=== PATIENT | male | born 1990 | race Two or more races ===

== ENCOUNTER 2018-01-10 03:38 | Emergency (ER) | payer MEDICAID ==
[~2018-01-10] VITALS: Ht 175.3 cm; Wt 63.5 kg
[2018-01-10 03:52] VITALS: BP 149/100
== END 2018-01-10 04:30 | disposition left against medical advice (07) ==
LOC: ER 03:57
DX: L29.8 Other pruritus (principal); Z53.21 Procedure and treatment not carried out due to patient leaving prior to being seen by health care provider

== ENCOUNTER 2018-01-10 07:31 | Emergency (ER) | payer MEDICAID ==
[~2018-01-10] VITALS: Ht 175.3 cm; Wt 63.5 kg
[2018-01-10 07:40] VITALS: BP 116/82
== END 2018-01-10 08:37 | disposition home or self-care (01) ==
LOC: ER 07:31
DX: S90.425A Blister (nonthermal), left lesser toe(s), initial encounter (principal); L23.89 Allergic contact dermatitis due to other agents; F17.210 Nicotine dependence, cigarettes, uncomplicated; Z88.0 Allergy status to penicillin; X58.XXXA Exposure to other specified factors, initial encounter; Y93.89 Activity, other specified; Y99.8 Other external cause status; Y92.89 Other specified places as the place of occurrence of the external cause

== ENCOUNTER → 2018-01-15 | Emergency (ER) | payer MEDICAID | END | disposition left against medical advice (07) | LOC: ER 02:20 | DX: T78.40XA Allergy, unspecified, initial encounter (principal); Z53.21 Procedure and treatment not carried out due to patient leaving prior to being seen by health care provider ==

== ENCOUNTER 2018-01-24 05:22 | Emergency (ER) | payer MEDICAID ==
[~2018-01-24] VITALS: Ht 175.3 cm; Wt 63.5 kg
[2018-01-24 05:30] VITALS: BP 134/92
== END 2018-01-24 08:05 | disposition home or self-care (01) ==
LOC: ER 05:24
DX: L85.3 Xerosis cutis (principal); L98.8 Other specified disorders of the skin and subcutaneous tissue; F17.210 Nicotine dependence, cigarettes, uncomplicated; Z88.0 Allergy status to penicillin

== ENCOUNTER → 2018-01-26 | Emergency (ER) | payer MEDICAID | END | disposition left against medical advice (07) | LOC: ER 02:29 | DX: M79.673 Pain in unspecified foot (principal); Z53.21 Procedure and treatment not carried out due to patient leaving prior to being seen by health care provider ==

== ENCOUNTER 2018-01-29 05:03 | Emergency (ER) | payer MEDICAID ==
[~2018-01-29] VITALS: Ht 175.3 cm; Wt 68.0 kg
[2018-01-29 05:20] VITALS: BP 122/77
== END 2018-01-29 07:25 | disposition home or self-care (01) ==
LOC: ER 05:07
DX: L98.8 Other specified disorders of the skin and subcutaneous tissue (principal); F17.210 Nicotine dependence, cigarettes, uncomplicated; Z76.0 Encounter for issue of repeat prescription; Z88.0 Allergy status to penicillin

== ENCOUNTER 2018-02-14 04:18 | Emergency (ER) | payer MEDICAID | END 2018-02-14 04:45 | disposition left against medical advice (07) | LOC: ER 04:20 | DX: M79.89 Other specified soft tissue disorders (principal); Z48.01 Encounter for change or removal of surgical wound dressing; Z53.21 Procedure and treatment not carried out due to patient leaving prior to being seen by health care provider ==

== ENCOUNTER 2018-04-17 11:06 | Emergency (ER) | payer MEDICAID ==
[~2018-04-17] VITALS: Ht 175.3 cm; Wt 63.5 kg
[2018-04-17 11:28] VITALS: BP 110/86
== END 2018-04-17 12:01 | disposition home or self-care (01) ==
LOC: ER 11:08
DX: L85.3 Xerosis cutis (principal); Z76.0 Encounter for issue of repeat prescription; Z88.0 Allergy status to penicillin

== ENCOUNTER 2019-07-12 02:31 | Emergency (ER) | payer MEDICAID ==
[~2019-07-12] VITALS: Ht 175.3 cm; Wt 63.5 kg
[2019-07-12 07:45] VITALS: BP 119/75
[2019-07-12] MEDS ORDERED: methylPREDNISolone SOD SUCC 125 MG/2 ML VL IM ONE (08:00)
[2019-07-12] MEDS ORDERED: diphenhdrAMINE HCL 50 MG/1 ML VL IM ONE (08:00)
== END 2019-07-12 08:29 | disposition home or self-care (01) ==
LOC: ER 02:31
DX: B86 Scabies (principal); L08.9 Local infection of the skin and subcutaneous tissue, unspecified
CPT/HCPCS: 96372; 99283; J1200; J2930

== ENCOUNTER 2019-08-21 02:39 | Emergency (ER) | payer MEDICAID ==
[~2019-08-21] VITALS: Ht 170.2 cm; Wt 61.2 kg
[2019-08-21 04:44] VITALS: BP 116/73
== END 2019-08-21 04:57 | disposition home or self-care (01) ==
LOC: ER 02:40
DX: L21.9 Seborrheic dermatitis, unspecified (principal); F17.210 Nicotine dependence, cigarettes, uncomplicated; Z88.0 Allergy status to penicillin

== ENCOUNTER 2019-09-16 06:26 | Emergency (ER) | payer MEDICAID ==
[~2019-09-16] VITALS: Ht 175.3 cm; Wt 59.0 kg
[2019-09-16 06:58] VITALS: BP 122/59
== END 2019-09-16 08:57 | disposition home or self-care (01) ==
LOC: ER 06:26
DX: B86 Scabies (principal); F17.210 Nicotine dependence, cigarettes, uncomplicated; Z88.0 Allergy status to penicillin

== ENCOUNTER 2020-01-13 09:20 | Emergency (ER) | payer MEDICAID ==
[~2020-01-13] VITALS: Ht 175.3 cm; Wt 63.5 kg
[2020-01-13 09:26] VITALS: BP 122/76
[2020-01-13] MEDS ORDERED: KETOROLAC TROMETH 60MG/2ML VIAL IM ONE (10:30)
== END 2020-01-13 10:57 | disposition home or self-care (01) ==
LOC: ER 09:20
DX: M79.671 Pain in right foot (principal); M79.672 Pain in left foot; F17.210 Nicotine dependence, cigarettes, uncomplicated; F41.9 Anxiety disorder, unspecified
CPT/HCPCS: 96372; 99283; J1885

== ENCOUNTER 2020-11-17 23:55 | Emergency (ER) | payer MEDICAID ==
[~2020-11-17] VITALS: Ht 175.3 cm; Wt 65.8 kg
[2020-11-18] MEDS ORDERED: ONDANSETRON HCL 4 MG/2 ML VIAL IV ONE (07:15)
[2020-11-18] MEDS ORDERED: SODIUM CHLORIDE 0.9% 1,000 ML IV ONE ×2 (07:15)
[2020-11-18 08:30] VITALS: BP 117/83
== END 2020-11-18 08:33 | disposition home or self-care (01) ==
LOC: ER 23:55
DX: T67.5XXA Heat exhaustion, unspecified, initial encounter (principal); E86.0 Dehydration; F17.210 Nicotine dependence, cigarettes, uncomplicated; Z88.0 Allergy status to penicillin; X58.XXXA Exposure to other specified factors, initial encounter; Y93.89 Activity, other specified; Y92.89 Other specified places as the place of occurrence of the external cause; Y99.8 Other external cause status
CPT/HCPCS: 99281; J2405

== ENCOUNTER 2021-01-04 19:45 | Emergency (ER) | payer SELFPAY ==
[~2021-01-04] VITALS: Ht 175.3 cm; Wt 65.8 kg
[2021-01-04 20:11] VITALS: BP 116/73
== END 2021-01-05 01:34 | disposition home or self-care (01) ==
LOC: ER 19:55
DX: M79.672 Pain in left foot (principal); M79.671 Pain in right foot; F15.10 Other stimulant abuse, uncomplicated; F17.210 Nicotine dependence, cigarettes, uncomplicated; Z88.0 Allergy status to penicillin

== ENCOUNTER 2021-01-30 10:34 | Emergency (ER) | payer SELFPAY ==
[~2021-01-30] VITALS: Ht 180.3 cm; Wt 65.8 kg
[2021-01-30 11:20] VITALS: BP 105/64
[2021-01-30] MEDS ORDERED: cefTRIAXone SOD 1,000 MG VL IM ONE (15:30)
[2021-01-30] MEDS ORDERED: SILVER SULFADIAZINE 1 % TOPICAL CREAM 50GM TOP ONE (15:30)
== END 2021-01-30 16:21 | disposition home or self-care (01) ==
LOC: ER 10:36
DX: T24.221A Burn of second degree of right knee, initial encounter (principal); F17.210 Nicotine dependence, cigarettes, uncomplicated; Z88.0 Allergy status to penicillin; X08.8XXA Exposure to other specified smoke, fire and flames, initial encounter; Y93.89 Activity, other specified; Y92.89 Other specified places as the place of occurrence of the external cause; Y99.8 Other external cause status
CPT/HCPCS: 16020; 96372; 99283; J0696

== ENCOUNTER 2021-07-20 01:29 | Emergency (ER) | payer MEDICAID ==
[~2021-07-20] VITALS: Ht 175.3 cm; Wt 65.8 kg
[2021-07-20 09:30] VITALS: BP 135/80
== END 2021-07-20 09:48 | disposition home or self-care (01) ==
LOC: ER 01:29
DX: S32.019A Unspecified fracture of first lumbar vertebra, initial encounter for closed fracture (principal); S33.5XXA Sprain of ligaments of lumbar spine, initial encounter; F17.210 Nicotine dependence, cigarettes, uncomplicated; M79.18 Myalgia, other site; F15.10 Other stimulant abuse, uncomplicated; Z88.0 Allergy status to penicillin; V43.92XA Unspecified car occupant injured in collision with other type car in traffic accident, initial encounter; Y93.89 Activity, other specified; Y92.89 Other specified places as the place of occurrence of the external cause; Y99.8 Other external cause status
CPT/HCPCS: 72125; 72131

== ENCOUNTER 2021-08-02 01:26 | Emergency (ER) | payer MEDICAID ==
[~2021-08-02] VITALS: Ht 180.3 cm; Wt 63.5 kg
[2021-08-02 02:11] LABS: Basophils # (auto) 0 10 ^3/uL (0-0.2); Basophils % (auto) 0.5 % (0.0-2.0); Eosinophils # (auto) 0.1 10 ^3/uL (0-0.8); Eosinophils % (auto) 1.7 % (0.0-7.0); Hematocrit 43.9 % (41.0-53.0); Hemoglobin 14.9 g/dL (13.5-17.5); Lymphocytes # (auto) 1.5 10 ^3/uL (0.4-5.4); Lymphocytes % (auto) 26.3 % (10.0-50.0); Mean Corpuscular Hemoglobin 28.4 pg (28.0-32.0); Mean Corpuscular Hgb Conc. 33.9 g/dL (32.0-36.0); Mean Corpuscular Volume 83.8 fL (80.0-100.0); Monocytes # (auto) 0.5 10 ^3/uL (0-1.3); Monocytes % (auto) 8.2 % (0.0-12.0); Neutrophils # (auto) 3.5 10 ^3/uL (1.6-8.6); Neutrophils % (auto) 63.3 % (37.0-80.0); Nucleated Red Blood Cells % 0.1 %; Red Blood Cells 5.24 10^6/uL (4.5-5.90); Red Cell Distribution Width 14.5 % (11.8-14.3); White Blood Cell 5.5 10^3/uL (4.4-10.8)
[2021-08-02 02:27] LABS: BUN/Creatinine Ratio 19.7; Calcium 9.8 mg/dL (8.5-10.1); Potassium 4.1 mmol/L (3.5-5.1)
[2021-08-02 04:39] LABS: Alcohol, Urine < 3.0 mg/dL (0-10); Amphetamine Screen, Urine POSITIVE (NEGATIVE); Barbiturate Scree,Urine NEGATIVE (NEGATIVE); Benzodiazephine Screen, Urine NEGATIVE (NEGATIVE); Cannabinoid Screen, Urine POSITIVE (NEGATIVE); Cocaine Screen, Urine NEGATIVE (NEGATIVE); Opiate Scree,Urine NEGATIVE (NEGATIVE); Phencyclidine Screen, Urine NEGATIVE (NEGATIVE)
[2021-08-03 04:00] VITALS: BP 115/62
== END 2021-08-03 04:09 ==
LOC: ER 01:29
DX: T24.001A Burn of unspecified degree of unspecified site of right lower limb, except ankle and foot, initial encounter (principal); R41.82 Altered mental status, unspecified; F12.10 Cannabis abuse, uncomplicated; F15.10 Other stimulant abuse, uncomplicated; F17.210 Nicotine dependence, cigarettes, uncomplicated; F19.951 Other psychoactive substance use, unspecified with psychoactive substance-induced psychotic disorder with hallucinations; X08.8XXA Exposure to other specified smoke, fire and flames, initial encounter; Y93.9 Activity, unspecified; Y92.9 Unspecified place or not applicable; Y99.9 Unspecified external cause status
CPT/HCPCS: 36415; 71046; 80048; 80307; 80320; 85025

== ENCOUNTER 2021-10-18 13:43 | Emergency (ER) | payer MEDICAID ==
[~2021-10-18] VITALS: Ht 175.3 cm; Wt 68.0 kg
[2021-10-18 13:45] VITALS: BP 123/71
[2021-10-19] MEDS ORDERED: IBUP800T27 PO (07:11)
== END 2021-10-19 06:46 | disposition left against medical advice (07) ==
LOC: ER 13:43
DX: R44.3 Hallucinations, unspecified (principal); F19.951 Other psychoactive substance use, unspecified with psychoactive substance-induced psychotic disorder with hallucinations; F17.210 Nicotine dependence, cigarettes, uncomplicated; F15.10 Other stimulant abuse, uncomplicated; Z53.29 Procedure and treatment not carried out because of patient's decision for other reasons

== ENCOUNTER 2021-10-19 06:12 | Emergency (ER) | payer MEDICAID ==
[~2021-10-19] VITALS: Ht 175.3 cm; Wt 68.0 kg
[2021-10-19 06:13] VITALS: BP 121/78
[2021-10-19] MEDS ORDERED: IBUP800T27 PO (07:11)
[2021-10-19] MEDS ORDERED: HYDROcodone-ACET 5/325MG TAB PO ONE (07:15)
== END 2021-10-19 07:33 | disposition home or self-care (01) ==
LOC: ER 06:12
DX: M54.50 Low back pain, unspecified (principal); G89.29 Other chronic pain; F17.210 Nicotine dependence, cigarettes, uncomplicated; F15.10 Other stimulant abuse, uncomplicated; Z88.0 Allergy status to penicillin

== ENCOUNTER 2021-10-19 16:35 | Emergency (ER) | payer MEDICAID ==
[~2021-10-19] VITALS: Ht 175.3 cm; Wt 68.0 kg
[~2021-10-19 16:35] MED LIST: IBUP800T27 PO
[2021-10-19 16:36] VITALS: BP 147/70
[2021-10-19] MEDS ORDERED: HYDROcodone-ACET 5/325MG TAB PO ONE (17:45)
== END 2021-10-19 18:00 | disposition home or self-care (01) ==
LOC: ER 16:35
DX: G89.29 Other chronic pain (principal); M54.50 Low back pain, unspecified; M62.830 Muscle spasm of back; Z88.0 Allergy status to penicillin

== ENCOUNTER 2021-10-20 23:39 | Emergency (ER) | payer MEDICAID ==
[~2021-10-20] VITALS: Ht 175.3 cm; Wt 68.0 kg
[2021-10-21] MEDS ORDERED: KETOROLAC TROMETH 60MG/2ML VIAL IM ONE (03:15)
[2021-10-21 03:23] VITALS: BP 132/87
== END 2021-10-21 03:26 | disposition home or self-care (01) ==
LOC: ER 23:47
DX: M54.9 Dorsalgia, unspecified (principal); G89.4 Chronic pain syndrome; F17.210 Nicotine dependence, cigarettes, uncomplicated; F15.10 Other stimulant abuse, uncomplicated; Z88.0 Allergy status to penicillin
CPT/HCPCS: 96372; 99283; J1885

== ENCOUNTER 2021-10-23 11:12 | Emergency (ER) | payer MEDICAID ==
[~2021-10-23] VITALS: Ht 175.3 cm; Wt 68.0 kg
[2021-10-23 12:21] VITALS: BP 127/76
[2021-10-23] MEDS ORDERED: KETOROLAC TROMETH 60MG/2ML VIAL IM ONE (13:00)
== END 2021-10-23 13:31 | disposition home or self-care (01) ==
LOC: ER 11:12
DX: G89.29 Other chronic pain (principal); M54.59 Other low back pain; F15.10 Other stimulant abuse, uncomplicated; F12.10 Cannabis abuse, uncomplicated; F17.210 Nicotine dependence, cigarettes, uncomplicated; Z88.0 Allergy status to penicillin
CPT/HCPCS: 96372; 99283; J1885

== ENCOUNTER 2021-10-31 22:36 | Emergency (ER) | payer MEDICAID ==
[~2021-10-31] VITALS: Ht 175.3 cm; Wt 70.8 kg
[2021-10-31 22:49] VITALS: BP 139/94
[2021-11-01] MEDS ORDERED: KETOROLAC TROMETH 60MG/2ML VIAL IM ONE (01:45)
== END 2021-11-01 02:01 | disposition home or self-care (01) ==
LOC: ER 22:36
DX: M54.50 Low back pain, unspecified (principal); G89.29 Other chronic pain
CPT/HCPCS: 96372; 99283; J1885

== ENCOUNTER 2021-11-07 00:18 | Emergency (ER) | payer MEDICAID ==
[~2021-11-07] VITALS: Ht 175.3 cm; Wt 72.6 kg
[2021-11-07 00:19] VITALS: BP 123/84
== END 2021-11-07 06:17 | disposition left against medical advice (07) ==
LOC: ER 00:18
DX: M54.9 Dorsalgia, unspecified (principal); Z53.21 Procedure and treatment not carried out due to patient leaving prior to being seen by health care provider

== ENCOUNTER 2021-11-07 20:22 | Emergency (ER) | payer MEDICAID ==
[~2021-11-07] VITALS: Ht 175.3 cm; Wt 68.0 kg
[2021-11-07 20:23] VITALS: BP 123/91
[2021-11-08] MEDS ORDERED: KETOROLAC TROMETH 60MG/2ML VIAL IM ONE (02:00)
== END 2021-11-08 02:14 | disposition home or self-care (01) ==
LOC: ER 20:22
DX: G89.29 Other chronic pain (principal); M54.50 Low back pain, unspecified; M79.672 Pain in left foot; Z88.0 Allergy status to penicillin
CPT/HCPCS: 73630; 96372; 99283; J1885

== ENCOUNTER 2021-11-09 02:11 | Emergency (ER) | payer MEDICAID ==
[~2021-11-09] VITALS: Ht 175.3 cm; Wt 68.0 kg
[2021-11-09 02:12] VITALS: BP 130/91
== END 2021-11-09 02:37 | disposition home or self-care (01) ==
LOC: ER 02:11
DX: G89.29 Other chronic pain (principal); M54.50 Low back pain, unspecified; F17.210 Nicotine dependence, cigarettes, uncomplicated; Z79.1 Long term (current) use of non-steroidal anti-inflammatories (NSAID); Z88.0 Allergy status to penicillin

== ENCOUNTER 2021-11-10 02:13 | Emergency (ER) | payer MEDICAID ==
[~2021-11-10] VITALS: Ht 175.3 cm; Wt 68.0 kg
[2021-11-10 03:30] VITALS: BP 120/82
== END 2021-11-10 03:35 | disposition home or self-care (01) ==
LOC: ER 02:13
DX: M79.672 Pain in left foot (principal); G89.29 Other chronic pain; M54.50 Low back pain, unspecified; F17.210 Nicotine dependence, cigarettes, uncomplicated; F12.10 Cannabis abuse, uncomplicated; F15.10 Other stimulant abuse, uncomplicated

== ENCOUNTER 2021-11-12 06:20 | Emergency (ER) | payer MEDICAID ==
[~2021-11-12] VITALS: Ht 175.3 cm; Wt 68.0 kg
[2021-11-12] MEDS ORDERED: KETOROLAC TROMETH 60MG/2ML VIAL IM ONE (11:00)
[2021-11-12 11:23] VITALS: BP 144/92
== END 2021-11-12 11:55 | disposition home or self-care (01) ==
LOC: ER 06:20
DX: M79.672 Pain in left foot (principal); M25.572 Pain in left ankle and joints of left foot; G89.29 Other chronic pain
CPT/HCPCS: 96372; 99284; J1885

== ENCOUNTER 2021-11-14 04:26 | Emergency (ER) | payer MEDICAID ==
[~2021-11-14] VITALS: Ht 175.3 cm; Wt 68.0 kg
[2021-11-14 07:35] VITALS: BP 132/68
== END 2021-11-14 09:40 | disposition home or self-care (01) ==
LOC: ER 04:26
DX: S30.862A Insect bite (nonvenomous) of penis, initial encounter (principal); F15.10 Other stimulant abuse, uncomplicated; F12.10 Cannabis abuse, uncomplicated; F17.210 Nicotine dependence, cigarettes, uncomplicated; G89.29 Other chronic pain; M54.9 Dorsalgia, unspecified; M79.672 Pain in left foot; Z79.1 Long term (current) use of non-steroidal anti-inflammatories (NSAID); Z88.0 Allergy status to penicillin; W57.XXXA Bitten or stung by nonvenomous insect and other nonvenomous arthropods, initial encounter; Y93.89 Activity, other specified; Y92.89 Other specified places as the place of occurrence of the external cause; Y99.8 Other external cause status

== ENCOUNTER 2021-11-17 05:13 | Emergency (ER) | payer MEDICAID ==
[~2021-11-17] VITALS: Ht 175.3 cm; Wt 68.5 kg
[2021-11-17 06:16] VITALS: BP 138/89
== END 2021-11-17 06:23 | disposition left against medical advice (07) ==
LOC: ER 05:13
DX: M54.50 Low back pain, unspecified (principal); Z53.21 Procedure and treatment not carried out due to patient leaving prior to being seen by health care provider

== ENCOUNTER 2021-11-20 04:01 | Emergency (ER) | payer MEDICAID ==
[~2021-11-20] VITALS: Ht 175.3 cm; Wt 56.7 kg
[2021-11-20 04:13] VITALS: BP 124/86
== END 2021-11-20 05:16 | disposition left against medical advice (07) ==
LOC: ER 04:01
DX: M79.672 Pain in left foot (principal); M79.671 Pain in right foot; Z53.21 Procedure and treatment not carried out due to patient leaving prior to being seen by health care provider

== ENCOUNTER 2021-11-24 02:20 | Emergency (ER) | payer MEDICAID ==
[~2021-11-24] VITALS: Ht 175.3 cm; Wt 68.0 kg
[2021-11-24 02:20] VITALS: BP 129/82
[2021-11-24] MEDS ORDERED: IBUP800T27 PO (05:43)
== END 2021-11-24 05:50 | disposition home or self-care (01) ==
LOC: ER 02:20
DX: R51.9 Headache, unspecified (principal); F17.210 Nicotine dependence, cigarettes, uncomplicated; Z79.1 Long term (current) use of non-steroidal anti-inflammatories (NSAID); Z88.0 Allergy status to penicillin
CPT/HCPCS: 70450

== ENCOUNTER 2021-12-01 20:19 | Emergency (ER) | payer MEDICAID ==
[~2021-12-01] VITALS: Ht 175.3 cm; Wt 68.0 kg
[2021-12-01 21:44] VITALS: BP 119/77
[2021-12-01] MEDS ORDERED: KETOROLAC TROMETH 30 MG/ML 1ML VIAL IM ONE (22:30)
== END 2021-12-01 23:39 | disposition home or self-care (01) ==
LOC: ER 20:19
DX: R51.9 Headache, unspecified (principal); F17.210 Nicotine dependence, cigarettes, uncomplicated; F12.10 Cannabis abuse, uncomplicated; F15.10 Other stimulant abuse, uncomplicated; Z88.0 Allergy status to penicillin
CPT/HCPCS: 96372; 99283; J1885

== ENCOUNTER 2021-12-07 21:59 | Inpatient (IN) | payer MEDICAID ==
[~2021-12-07] VITALS: Ht 165.1 cm; Wt 62.1 kg
[2021-12-07 20:00] VITALS: BP 104/61
[2021-12-07 23:00] LABS: Basophils # (auto) 0 10 ^3/uL (0-0.2); Basophils % (auto) 0.2 % (0.0-2.0); Eosinophils # (auto) 0 10 ^3/uL (0-0.8); Eosinophils % (auto) 0.1 % (0.0-7.0); Hematocrit 41.8 % (41.0-53.0); Hemoglobin 13.8 g/dL (13.5-17.5); Lymphocytes # (auto) 0.4 10 ^3/uL (0.4-5.4); Lymphocytes % (auto) 5.4 % (10.0-50.0); Mean Corpuscular Hemoglobin 28.1 pg (28.0-32.0); Mean Corpuscular Hgb Conc. 32.9 g/dL (32.0-36.0); Mean Corpuscular Volume 85.4 fL (80.0-100.0); Monocytes # (auto) 0.2 10 ^3/uL (0-1.3); Monocytes % (auto) 3.3 % (0.0-12.0); Neutrophils # (auto) 6.6 10 ^3/uL (1.6-8.6); Red Blood Cells 4.89 10^6/uL (4.5-5.90); Red Cell Distribution Width 13.4 % (11.8-14.3); White Blood Cell 7.3 10^3/uL (4.4-10.8)
[2021-12-07 23:19] LABS: Albumin 3.8 g/dL (3.4-5.0); BUN/Creatinine Ratio 7.5; Calcium 8.5 mg/dL (8.5-10.1); Potassium 3.7 mmol/L (3.5-5.1); Salicylate < 1.7 mg/dL (2.8-20.0)
[2021-12-07 23:22] LABS: Bilirubin, Total 0.3 mg/dL (0.2-1.0); Total Protein 6.7 g/dL (6.4-8.2)
[2021-12-07 23:30] LABS: Acetaminophen < 2.0 ug/mL (10-30)
[2021-12-07 23:48] LABS: Magnesium 2.4 mg/dL (1.6-2.6)
[2021-12-08] MEDS ORDERED: LORazepam 2MG/ML-1ML VIAL IV ONE (00:45)
[2021-12-08] MEDS ORDERED: ASPirin 300 MG RECTAL SUPP PR ONE (00:45)
[2021-12-08] MEDS ORDERED: SODIUM CHLORIDE 0.9% 1,000 ML IV ONE ×2 (01:00)
[2021-12-08] MEDS ORDERED: LACTULOSE 10g/15ml SOLN 473ML PR ONE (01:15)
[2021-12-08] MEDS ORDERED: ASPirin 325 MG TAB PO ONE (01:15)
[2021-12-08] MEDS ORDERED: levoFLOXacin 750MG 150 ML IV ONE (01:15)
[2021-12-08] MEDS ORDERED: ACETAMINOPHEN 325 MG TAB PO PRN (01:45)
[2021-12-08] MEDS ORDERED: LORazepam 2MG/ML-1ML VIAL IV PRN (01:45)
[2021-12-08] MEDS ORDERED: DOCUSATE SOD 100 MG CAP PO PRN (01:45)
[2021-12-08] MEDS ORDERED: ONDANSETRON HCL 4 MG/2 ML VIAL IV PRN (01:45)
[2021-12-08] MEDS ORDERED: NITROGLYCERIN 0.4 MG SL TAB SL PRN (03:45)
[2021-12-08] MEDS ORDERED: MORPHINE SULFATE INJ 2 MG/ml SYRG IV PRN (03:45)
[2021-12-08 05:14] LABS: Basophils # (auto) 0 10 ^3/uL (0-0.2); Basophils % (auto) 0.2 % (0.0-2.0); Eosinophils # (auto) 0 10 ^3/uL (0-0.8); Eosinophils % (auto) 0.1 % (0.0-7.0); Hemoglobin 13.7 g/dL (13.5-17.5); Lymphocytes # (auto) 0.8 10 ^3/uL (0.4-5.4); Mean Corpuscular Hemoglobin 28.8 pg (28.0-32.0); Mean Corpuscular Hgb Conc. 32.7 g/dL (32.0-36.0); Mean Corpuscular Volume 88.2 fL (80.0-100.0); Monocytes # (auto) 0.7 10 ^3/uL (0-1.3); Monocytes % (auto) 9.5 % (0.0-12.0); Neutrophils # (auto) 6.2 10 ^3/uL (1.6-8.6); Neutrophils % (auto) 80.2 % (37.0-80.0); Nucleated Red Blood Cells % 0.1 %; Red Blood Cells 4.76 10^6/uL (4.5-5.90); Red Cell Distribution Width 13.6 % (11.8-14.3); White Blood Cell 7.7 10^3/uL (4.4-10.8)
[2021-12-08 05:24] LABS: Albumin 3.5 g/dL (3.4-5.0); BUN/Creatinine Ratio 12.7; Calcium 7.8 mg/dL (8.5-10.1); INR 1.27 (0.9-1.15); Partial Thromboplastin Time 27.3 sec (23.6-33.0); Potassium 4.1 mmol/L (3.5-5.1)
[2021-12-08 05:27] LABS: Bilirubin, Total 0.2 mg/dL (0.2-1.0); Total Protein 6.2 g/dL (6.4-8.2)
[2021-12-08] MEDS: HEPARIN DRIP/D5W 100UNITS/ML 250 ML IV SCH (06:00)
[2021-12-08] MEDS: SODIUM CHLOR 0.9% PF (SALINE LOCK) 10ML VIAL/SYR IV SCH ×3 (06:08→22:54)
[2021-12-08] MEDS: ACCU-CHEK COMFORT CURVE STRIP VI SCH ×4 (06:52→22:00)
[2021-12-08] MEDS: InsuLIN REG 1unit/0.01ml Soln (100units/ml) SC SCH ×4 (06:52→22:00)
[2021-12-08] MEDS: ASPirin 81 mg TAB PO SCH (10:00)
[2021-12-08] MEDS: MULTIPLE VITAMIN TAB PO SCH (10:00)
[2021-12-08] MEDS ORDERED: HEPARIN SODIUM (PORCINE) 5000 UNITS/ML 1ML VIAL SC SCH (10:00)
[2021-12-08] MEDS: LACTULOSE 20Gm/30ML SOLN PO SCH ×3 (10:04→18:00)
[2021-12-08] MEDS: THIAMINE 100mg/ml INJ (200mg/2ml VIAL) IV SCH (10:27)
[2021-12-08] MEDS: FAMOTIDINE (10MG/ML) 2ML VL IV SCH (10:27)
[2021-12-08] MEDS: FOLIC ACID 1 MG in D5W 5% 50 ML INJ SCH (10:46)
[2021-12-08] MEDS: DEXTROSE (50%) 50ML SYRG IV PRN ×2 (12:11→18:39)
[2021-12-08 13:19] LABS: INR 1.27 (0.9-1.15); Partial Thromboplastin Time 35.7 sec (23.6-33.0)
[2021-12-08 15:10] LABS: Cholesterol 118 mg/dL (< 200); HDL Cholesterol 59 mg/dL (40-59); LDL Cholesterol 60 mg/dL (< 100); Triglycerides 36 mg/dL (< 150)
[2021-12-08 17:15] VITALS: BP 96/60
[2021-12-08 20:00] VITALS: BP 104/61
[2021-12-08 22:00] VITALS: BP 104/61
[2021-12-08 22:31] LABS: INR 1.17 (0.9-1.15); Partial Thromboplastin Time 33.6 sec (24.6-33.4)
[2021-12-08] MEDS ORDERED: HEPARIN SODIUM (PORCINE) 5000 UNITS/ML 1ML VIAL IV ONE (23:15)
[2021-12-09] MEDS: LACTULOSE 20Gm/30ML SOLN PO SCH ×5 (00:19→18:25)
[2021-12-09 02:18] VITALS: BP 104/61
[2021-12-09 05:00] VITALS: BP 111/73
[2021-12-09] MEDS: ACCU-CHEK COMFORT CURVE STRIP VI SCH ×4 (06:10→22:12)
[2021-12-09] MEDS: InsuLIN REG 1unit/0.01ml Soln (100units/ml) SC SCH ×4 (06:10→22:00)
[2021-12-09] MEDS: SODIUM CHLOR 0.9% PF (SALINE LOCK) 10ML VIAL/SYR IV SCH ×3 (06:10→22:13)
[2021-12-09] MEDS: HEPARIN DRIP/D5W 100UNITS/ML 250 ML IV SCH (06:37)
[2021-12-09 07:38] LABS: Basophils # (auto) 0 10 ^3/uL (0-0.2); Basophils % (auto) 0.6 % (0.0-2.0); Eosinophils # (auto) 0 10 ^3/uL (0-0.8); Eosinophils % (auto) 0.7 % (0.0-7.0); Hematocrit 44.9 % (41.0-53.0); Lymphocytes # (auto) 1.2 10 ^3/uL (0.4-5.4); Lymphocytes % (auto) 17.9 % (10.0-50.0); Mean Corpuscular Hemoglobin 28.2 pg (28.0-32.0); Mean Corpuscular Hgb Conc. 33.5 g/dL (32.0-36.0); Mean Corpuscular Volume 84.3 fL (80.0-100.0); Monocytes # (auto) 0.5 10 ^3/uL (0-1.3); Monocytes % (auto) 7.5 % (0.0-12.0); Neutrophils # (auto) 4.8 10 ^3/uL (1.6-8.6); Neutrophils % (auto) 73.3 % (37.0-80.0); Nucleated Red Blood Cells % 0.2 %; Red Blood Cells 5.33 10^6/uL (4.5-5.90); Red Cell Distribution Width 13.8 % (11.8-14.3); White Blood Cell 6.6 10^3/uL (4.4-10.8)
[2021-12-09 07:58] LABS: Albumin 3.6 g/dL (3.4-5.0); BUN/Creatinine Ratio 10.9; Calcium 8.5 mg/dL (8.5-10.1); Potassium 3.8 mmol/L (3.5-5.1)
[2021-12-09 07:59] LABS: INR 1.2 (0.9-1.15)
[2021-12-09 08:05] LABS: Partial Thromboplastin Time 92.4 sec (24.6-33.4)
[2021-12-09 08:13] LABS: Bilirubin, Total 0.4 mg/dL (0.2-1.0); Total Protein 6.4 g/dL (6.4-8.2)
[2021-12-09 09:00] VITALS: BP 114/68
[2021-12-09] MEDS ORDERED: HEPARIN DRIP/D5W 100UNITS/ML 250 ML IV SCH (09:30)
[2021-12-09] MEDS: THIAMINE 100mg/ml INJ (200mg/2ml VIAL) IV SCH (09:43)
[2021-12-09] MEDS: ASPirin 81 mg TAB PO SCH (09:44)
[2021-12-09] MEDS: MULTIPLE VITAMIN TAB PO SCH (09:44)
[2021-12-09] MEDS: FOLIC ACID 1 MG in D5W 5% 50 ML INJ SCH (09:44)
[2021-12-09] MEDS: FAMOTIDINE (10MG/ML) 2ML VL IV SCH (09:44)
[2021-12-09 15:52] LABS: INR 1.18 (0.9-1.15); Partial Thromboplastin Time 56.4 sec (24.6-33.4)
[2021-12-09 17:00] VITALS: BP 122/86
[2021-12-09 20:00] VITALS: BP 104/57
[2021-12-09 22:00] VITALS: BP 104/57
[2021-12-09 22:03] LABS: INR 1.13 (0.9-1.15); Partial Thromboplastin Time 38.2 sec (24.6-33.4)
[2021-12-10] MEDS: LACTULOSE 20Gm/30ML SOLN PO SCH ×4 (01:07→17:03)
[2021-12-10 05:00] VITALS: BP 100/63
[2021-12-10] MEDS: SODIUM CHLOR 0.9% PF (SALINE LOCK) 10ML VIAL/SYR IV SCH ×3 (06:20→22:51)
[2021-12-10] MEDS: InsuLIN REG 1unit/0.01ml Soln (100units/ml) SC SCH ×4 (06:20→22:00)
[2021-12-10] MEDS: ACCU-CHEK COMFORT CURVE STRIP VI SCH ×4 (06:20→21:57)
[2021-12-10 06:43] LABS: INR 1.15 (0.9-1.15); Partial Thromboplastin Time 47.4 sec (24.6-33.4)
[2021-12-10 09:00] VITALS: BP 100/64
[2021-12-10] MEDS: FAMOTIDINE (10MG/ML) 2ML VL IV SCH (10:03)
[2021-12-10] MEDS: ASPirin 81 mg TAB PO SCH (10:03)
[2021-12-10] MEDS: MULTIPLE VITAMIN TAB PO SCH (10:03)
[2021-12-10] MEDS: THIAMINE 100mg/ml INJ (200mg/2ml VIAL) IV SCH (10:03)
[2021-12-10] MEDS: FOLIC ACID 1 MG in D5W 5% 50 ML INJ SCH (10:07)
[2021-12-10 13:00] VITALS: BP 103/62
[2021-12-10 13:22] LABS: Urine Bacteria NONE SEEN /hpf (None Seen); Urine Blood Negative /uL (Negative); Urine Mucus FEW (None Seen); Urine Specific Gravity 1.012 (1.001-1.035); Urine WBC 2 /hpf (0 - 3)
[2021-12-10 13:32] LABS: Alcohol, Urine < 3.0 mg/dL (0-10); Amphetamine Screen, Urine POSITIVE (NEGATIVE); Barbiturate Scree,Urine NEGATIVE (NEGATIVE); Benzodiazephine Screen, Urine NEGATIVE (NEGATIVE); Cannabinoid Screen, Urine NEGATIVE (NEGATIVE); Cocaine Screen, Urine NEGATIVE (NEGATIVE); Opiate Scree,Urine NEGATIVE (NEGATIVE); Phencyclidine Screen, Urine NEGATIVE (NEGATIVE)
[2021-12-10 13:48] LABS: INR 1.13 (0.9-1.15); Partial Thromboplastin Time 33.6 sec (24.6-33.4)
[2021-12-10 17:00] VITALS: BP 91/58
[2021-12-10 22:00] VITALS: BP 93/57
[2021-12-11] MEDS: LACTULOSE 20Gm/30ML SOLN PO SCH ×5 (00:01→23:47)
[2021-12-11 05:00] VITALS: BP 134/74
[2021-12-11] MEDS: SODIUM CHLOR 0.9% PF (SALINE LOCK) 10ML VIAL/SYR IV SCH ×3 (06:00→21:32)
[2021-12-11] MEDS: InsuLIN REG 1unit/0.01ml Soln (100units/ml) SC SCH ×4 (06:39→21:32)
[2021-12-11] MEDS: ACCU-CHEK COMFORT CURVE STRIP VI SCH ×4 (06:39→21:32)
[2021-12-11 09:00] VITALS: BP 104/58
[2021-12-11] MEDS: FAMOTIDINE (10MG/ML) 2ML VL IV SCH (10:32)
[2021-12-11] MEDS: ASPirin 81 mg TAB PO SCH (10:32)
[2021-12-11] MEDS: MULTIPLE VITAMIN TAB PO SCH (10:32)
[2021-12-11] MEDS: THIAMINE 100mg/ml INJ (200mg/2ml VIAL) IV SCH (10:33)
[2021-12-11] MEDS: FOLIC ACID 1 MG in D5W 5% 50 ML INJ SCH (10:40)
[2021-12-11 13:00] VITALS: BP 115/67
[2021-12-11 17:00] VITALS: BP 127/70
[2021-12-11] MEDS: ACETAMINOPHEN 325 MG TAB PO PRN (19:39)
[2021-12-11 22:00] VITALS: BP 105/65
[2021-12-12 05:00] VITALS: BP 117/74
[2021-12-12] MEDS: ACETAMINOPHEN 325 MG TAB PO PRN ×2 (05:15→15:00)
[2021-12-12] MEDS: LACTULOSE 20Gm/30ML SOLN PO SCH ×4 (06:23→23:50)
[2021-12-12] MEDS: SODIUM CHLOR 0.9% PF (SALINE LOCK) 10ML VIAL/SYR IV SCH ×3 (06:23→22:19)
[2021-12-12] MEDS: InsuLIN REG 1unit/0.01ml Soln (100units/ml) SC SCH ×4 (06:37→22:00)
[2021-12-12] MEDS: ACCU-CHEK COMFORT CURVE STRIP VI SCH ×4 (06:37→22:18)
[2021-12-12 09:00] VITALS: BP 110/62
[2021-12-12] MEDS: MULTIPLE VITAMIN TAB PO SCH (09:41)
[2021-12-12] MEDS: THIAMINE 100mg/ml INJ (200mg/2ml VIAL) IV SCH (09:41)
[2021-12-12] MEDS: ASPirin 81 mg TAB PO SCH (09:41)
[2021-12-12] MEDS: FAMOTIDINE (10MG/ML) 2ML VL IV SCH (09:41)
[2021-12-12] MEDS: FOLIC ACID 1 MG in D5W 5% 50 ML INJ SCH (09:43)
[2021-12-12 10:25] LABS: Hepatitis B Surface Antibody Negative (Negative)
[2021-12-12 11:45] LABS: Hepatitis A Total Antibody Negative (Negative)
[2021-12-12 12:52] LABS: Hepatitis C Antibody Negative (Negative)
[2021-12-12 12:55] VITALS: BP 113/62
[2021-12-12 16:39] VITALS: BP 103/55
[2021-12-12 17:20] LABS: Urine Bacteria NONE SEEN /hpf (None Seen); Urine Blood Negative /uL (Negative); Urine Mucus FEW (None Seen); Urine WBC <1 /hpf (0 - 3)
[2021-12-12 17:40] LABS: Basophils # (auto) 0 10 ^3/uL (0-0.2); Basophils % (auto) 0.3 % (0.0-2.0); Eosinophils # (auto) 0 10 ^3/uL (0-0.8); Hematocrit 47.8 % (41.0-53.0); Hemoglobin 15.9 g/dL (13.5-17.5); Lymphocytes # (auto) 0.4 10 ^3/uL (0.4-5.4); Lymphocytes % (auto) 4.8 % (10.0-50.0); Mean Corpuscular Hemoglobin 27.7 pg (28.0-32.0); Mean Corpuscular Hgb Conc. 33.4 g/dL (32.0-36.0); Monocytes # (auto) 0.4 10 ^3/uL (0-1.3); Monocytes % (auto) 5.6 % (0.0-12.0); Neutrophils # (auto) 6.6 10 ^3/uL (1.6-8.6); Neutrophils % (auto) 89.3 % (37.0-80.0); Nucleated Red Blood Cells % 0.2 %; Red Blood Cells 5.76 10^6/uL (4.5-5.90); Red Cell Distribution Width 13.6 % (11.8-14.3); White Blood Cell 7.4 10^3/uL (4.4-10.8)
[2021-12-12 17:54] LABS: Albumin 3.7 g/dL (3.4-5.0); BUN/Creatinine Ratio 11.1; Calcium 9.5 mg/dL (8.5-10.1); Potassium 3.7 mmol/L (3.5-5.1)
[2021-12-12 17:57] LABS: Bilirubin, Total 0.6 mg/dL (0.2-1.0); Total Protein 7.5 g/dL (6.4-8.2)
[2021-12-12 22:00] VITALS: BP 117/84
[2021-12-13 05:00] VITALS: BP 106/74
[2021-12-13] MEDS: LACTULOSE 20Gm/30ML SOLN PO SCH ×2 (06:09→13:33)
[2021-12-13] MEDS: SODIUM CHLOR 0.9% PF (SALINE LOCK) 10ML VIAL/SYR IV SCH ×2 (06:09→13:34)
[2021-12-13] MEDS: ACCU-CHEK COMFORT CURVE STRIP VI SCH ×2 (06:45→11:30)
[2021-12-13] MEDS: InsuLIN REG 1unit/0.01ml Soln (100units/ml) SC SCH ×2 (06:46→11:30)
[2021-12-13 07:01] LABS: Basophils # (auto) 0 10 ^3/uL (0-0.2); Basophils % (auto) 0.4 % (0.0-2.0); Eosinophils # (auto) 0 10 ^3/uL (0-0.8); Eosinophils % (auto) 0.1 % (0.0-7.0); Hematocrit 47.5 % (41.0-53.0); Hemoglobin 16.5 g/dL (13.5-17.5); Lymphocytes # (auto) 0.7 10 ^3/uL (0.4-5.4); Lymphocytes % (auto) 9.4 % (10.0-50.0); Mean Corpuscular Hemoglobin 29.1 pg (28.0-32.0); Mean Corpuscular Hgb Conc. 34.8 g/dL (32.0-36.0); Mean Corpuscular Volume 83.5 fL (80.0-100.0); Monocytes % (auto) 13.2 % (0.0-12.0); Neutrophils % (auto) 76.9 % (37.0-80.0); Red Blood Cells 5.68 10^6/uL (4.5-5.90); Red Cell Distribution Width 13.7 % (11.8-14.3); White Blood Cell 7.7 10^3/uL (4.4-10.8)
[2021-12-13 07:05] LABS: Potassium 4.2 mmol/L (3.5-5.1)
[2021-12-13 07:11] LABS: Albumin 3.7 g/dL (3.4-5.0); BUN/Creatinine Ratio 13.9; Bilirubin, Total 0.5 mg/dL (0.2-1.0); Calcium 9.2 mg/dL (8.5-10.1)
[2021-12-13 08:52] VITALS: BP 118/76
[2021-12-13] MEDS: MULTIPLE VITAMIN TAB PO SCH (09:03)
[2021-12-13] MEDS: ASPirin 81 mg TAB PO SCH (09:03)
[2021-12-13] MEDS: THIAMINE 100mg/ml INJ (200mg/2ml VIAL) IV SCH (09:03)
[2021-12-13] MEDS: FAMOTIDINE (10MG/ML) 2ML VL IV SCH (09:03)
[2021-12-13] MEDS: FOLIC ACID 1 MG in D5W 5% 50 ML INJ SCH (09:16)
[2021-12-13 12:35] VITALS: BP 114/73
[2021-12-13 16:00] VITALS: BP 110/77
== END 2021-12-13 16:38 | disposition home or self-care (01) | DRG 190 ==
LOC: ER 21:59 → TELE 12-08 03:38 → TELE-CENTR 12-08 15:51 → CENTRAL 12-12 12:09
PROVIDERS: ADMIT Nurse Practitioner Family; ATTEND Internal Medicine
DX: I21.4 Non-ST elevation (NSTEMI) myocardial infarction (principal); G92.8 Other toxic encephalopathy; E72.20 Disorder of urea cycle metabolism, unspecified; G93.1 Anoxic brain damage, not elsewhere classified; R65.10 Systemic inflammatory response syndrome (SIRS) of non-infectious origin without acute organ dysfunction; E86.0 Dehydration; F15.10 Other stimulant abuse, uncomplicated; R73.9 Hyperglycemia, unspecified; Y90.9 Presence of alcohol in blood, level not specified; F10.10 Alcohol abuse, uncomplicated; F12.90 Cannabis use, unspecified, uncomplicated; F17.210 Nicotine dependence, cigarettes, uncomplicated; Z20.822 Contact with and (suspected) exposure to COVID-19; Z59.00 Homelessness unspecified
CPT/HCPCS: 36415; 70450; 71045; 71250; 72125; 80053; 80061; 80307; 80320; 80329; 81001; 82140; 82550; 82962; 83036; 83735; 84443; 84484; 85025; 85610; 85730; 86703; 86704; 86706; 86708; 86803; 87040; 87340; 87804; 93005; 93306; 95819; 96365; 96367; 96375; 99291; G0378; J1956; J3490; J7060

== ENCOUNTER 2021-12-18 14:02 | Emergency (ER) | payer MEDICAID ==
[2021-12-18 14:51] VITALS: BP 113/64
[2021-12-18] MEDS ORDERED: ACETAMINOPHEN 325 MG TAB PO ONE (15:00)
[2021-12-18 15:52] LABS: Basophils # (auto) 0 10 ^3/uL (0-0.2); Basophils % (auto) 0.2 % (0.0-2.0); Eosinophils # (auto) 0 10 ^3/uL (0-0.8); Hematocrit 40.1 % (41.0-53.0); Hemoglobin 13.4 g/dL (13.5-17.5); Lymphocytes # (auto) 0.8 10 ^3/uL (0.4-5.4); Lymphocytes % (auto) 4.6 % (10.0-50.0); Mean Corpuscular Hemoglobin 27.3 pg (28.0-32.0); Mean Corpuscular Hgb Conc. 33.5 g/dL (32.0-36.0); Mean Corpuscular Volume 81.5 fL (80.0-100.0); Monocytes # (auto) 1.7 10 ^3/uL (0-1.3); Monocytes % (auto) 10.3 % (0.0-12.0); Neutrophils # (auto) 14.3 10 ^3/uL (1.6-8.6); Neutrophils % (auto) 84.9 % (37.0-80.0); Red Blood Cells 4.92 10^6/uL (4.5-5.90); Red Cell Distribution Width 13.2 % (11.8-14.3); White Blood Cell 16.8 10^3/uL (4.4-10.8)
[2021-12-18 16:09] LABS: BUN/Creatinine Ratio 12.5; Calcium 8.9 mg/dL (8.5-10.1)
[2021-12-18 16:11] LABS: Bilirubin, Total 0.7 mg/dL (0.2-1.0); Total Protein 7.7 g/dL (6.4-8.2)
== END 2021-12-18 16:42 | disposition left against medical advice (07) ==
LOC: ER 14:02
DX: R50.9 Fever, unspecified (principal); R53.1 Weakness; Z53.21 Procedure and treatment not carried out due to patient leaving prior to being seen by health care provider
CPT/HCPCS: 36415; 80053; 84484; 85025

== ENCOUNTER 2022-01-11 12:02 | Inpatient (IN) | payer MEDICAID ==
[~2022-01-11] VITALS: Ht 165.1 cm; Wt 74.4 kg
[2022-01-11] MEDS ORDERED: VANCOMYCIN PER PHARMACY 0 MG IV SCH (19:45)
[2022-01-11 22:00] VITALS: BP 113/62
[2022-01-11] MEDS ORDERED: VANCOMYCIN 1GM/250ML 250 ML IV ONE (23:00)
[2022-01-12 00:22] LABS: Basophils # (auto) 0 10 ^3/uL (0-0.2); Basophils % (auto) 0.7 % (0.0-2.0); Eosinophils # (auto) 0.3 10 ^3/uL (0-0.8); Eosinophils % (auto) 5.4 % (0.0-7.0); Hematocrit 34.1 % (41.0-53.0); Hemoglobin 11.4 g/dL (13.5-17.5); Lymphocytes # (auto) 1.3 10 ^3/uL (0.4-5.4); Mean Corpuscular Hemoglobin 27.8 pg (28.0-32.0); Mean Corpuscular Hgb Conc. 33.3 g/dL (32.0-36.0); Mean Corpuscular Volume 83.3 fL (80.0-100.0); Monocytes # (auto) 0.4 10 ^3/uL (0-1.3); Monocytes % (auto) 7.6 % (0.0-12.0); Neutrophils # (auto) 3.7 10 ^3/uL (1.6-8.6); Neutrophils % (auto) 64.3 % (37.0-80.0); Red Blood Cells 4.09 10^6/uL (4.5-5.90); Red Cell Distribution Width 13.3 % (11.8-14.3); White Blood Cell 5.7 10^3/uL (4.4-10.8)
[2022-01-12 00:26] LABS: Albumin 2.4 g/dL (3.4-5.0); Calcium 8.6 mg/dL (8.5-10.1)
[2022-01-12 00:27] LABS: BUN/Creatinine Ratio 33.3
[2022-01-12 00:31] LABS: Bilirubin, Total 0.2 mg/dL (0.2-1.0); Total Protein 7.8 g/dL (6.4-8.2)
[2022-01-12 05:00] VITALS: BP 107/65
[2022-01-12 06:14] LABS: Basophils # (auto) 0 10 ^3/uL (0-0.2); Basophils % (auto) 0.4 % (0.0-2.0); Eosinophils # (auto) 0.3 10 ^3/uL (0-0.8); Eosinophils % (auto) 4.5 % (0.0-7.0); Hematocrit 34.2 % (41.0-53.0); Hemoglobin 11.6 g/dL (13.5-17.5); Lymphocytes # (auto) 1.2 10 ^3/uL (0.4-5.4); Lymphocytes % (auto) 18.4 % (10.0-50.0); Mean Corpuscular Hemoglobin 28.2 pg (28.0-32.0); Monocytes # (auto) 0.5 10 ^3/uL (0-1.3); Monocytes % (auto) 7.9 % (0.0-12.0); Neutrophils # (auto) 4.6 10 ^3/uL (1.6-8.6); Neutrophils % (auto) 68.8 % (37.0-80.0); Nucleated Red Blood Cells % 0.1 %; Red Blood Cells 4.12 10^6/uL (4.5-5.90); Red Cell Distribution Width 13.8 % (11.8-14.3); White Blood Cell 6.8 10^3/uL (4.4-10.8)
[2022-01-12 06:20] LABS: Albumin 2.4 g/dL (3.4-5.0); Calcium 8.8 mg/dL (8.5-10.1); Potassium 3.9 mmol/L (3.5-5.1)
[2022-01-12 06:24] LABS: BUN/Creatinine Ratio 27.1; Bilirubin, Total 0.3 mg/dL (0.2-1.0); Total Protein 7.8 g/dL (6.4-8.2)
[2022-01-12] MEDS ORDERED: CEFEPIME 1GM/ 50ML 50 ML IV SCH ×3 (08:00→14:00)
[2022-01-12 08:43] VITALS: BP 106/61
[2022-01-12] MEDS ORDERED: VANCOMYCIN 1GM/250ML 250 ML IV ONE (09:00)
[2022-01-12] MEDS: VANCOMYCIN 1GM/250ML 250 ML IV SCH ×2 (10:44→17:05)
[2022-01-12] MEDS: CEFEPIME 1GM/ 50ML 50 ML IV SCH ×2 (10:44→18:19)
[2022-01-12] MEDS: ENOXAPARIN SOD 40 MG/0.4 ML SYRINGE SC SCH (10:45)
[2022-01-12] MEDS: NICOTINE 7MG/24HR TOPICAL PATCH TD SCH (10:57)
[2022-01-12] MEDS: Ensure HIGH Protein Vanilla 8oz Bottle PO SCH ×2 (12:00→18:19)
[2022-01-12 12:57] VITALS: BP 107/62
[2022-01-12 16:49] VITALS: BP 117/75
[2022-01-12 22:00] VITALS: BP 109/59
[2022-01-12] MEDS ORDERED: MIDAZOLAM HCL 2MG/2ML 2ml VIAL (1mg/ml) IV PRN (23:00)
[2022-01-13] MEDS: VANCOMYCIN 1GM/250ML 250 ML IV SCH ×4 (01:23→23:03)
[2022-01-13] MEDS: CEFEPIME 1GM/ 50ML 50 ML IV SCH ×3 (02:38→17:55)
[2022-01-13 05:00] VITALS: BP 101/59
[2022-01-13] MEDS: Ensure HIGH Protein Vanilla 8oz Bottle PO SCH ×3 (08:00→17:59)
[2022-01-13 09:00] VITALS: BP 113/67
[2022-01-13] MEDS: ENOXAPARIN SOD 40 MG/0.4 ML SYRINGE SC SCH (09:30)
[2022-01-13] MEDS: NICOTINE 7MG/24HR TOPICAL PATCH TD SCH (09:31)
[2022-01-13 13:00] VITALS: BP 123/68
[2022-01-13 17:00] VITALS: BP 113/54
[2022-01-13] MEDS ORDERED: VANCOMYCIN 1GM/250ML 250 ML IV SCH (17:00)
[2022-01-13 21:40] VITALS: BP 105/69
[2022-01-14] MEDS: CEFEPIME 1GM/ 50ML 50 ML IV SCH ×3 (01:59→17:32)
[2022-01-14 05:00] VITALS: BP 101/60
[2022-01-14 06:21] LABS: Calcium 8.6 mg/dL (8.5-10.1); Potassium 3.9 mmol/L (3.5-5.1)
[2022-01-14 06:25] LABS: Albumin 2.4 g/dL (3.4-5.0); BUN/Creatinine Ratio 44.4; Phosphorus 3.8 mg/dL (2.5-4.90)
[2022-01-14] MEDS: VANCOMYCIN 1GM/250ML 250 ML IV SCH ×3 (06:33→18:21)
[2022-01-14] MEDS: Ensure HIGH Protein Vanilla 8oz Bottle PO SCH ×3 (08:00→18:21)
[2022-01-14 08:56] VITALS: BP 118/67
[2022-01-14] MEDS: ENOXAPARIN SOD 40 MG/0.4 ML SYRINGE SC SCH (09:21)
[2022-01-14] MEDS: NICOTINE 7MG/24HR TOPICAL PATCH TD SCH (09:21)
[2022-01-14 13:11] VITALS: BP 107/63
[2022-01-14 13:50] LABS: BUN/Creatinine Ratio 31.1; Calcium 8.6 mg/dL (8.5-10.1); Potassium 3.6 mmol/L (3.5-5.1)
[2022-01-14 16:42] VITALS: BP 110/66
[2022-01-14] MEDS: ACETAMINOPHEN 325 MG TAB PO PRN (21:29)
[2022-01-14 22:00] VITALS: BP 112/70
[2022-01-15] MEDS: VANCOMYCIN 1GM/250ML 250 ML IV SCH ×4 (00:29→18:11)
[2022-01-15] MEDS: CEFEPIME 1GM/ 50ML 50 ML IV SCH ×3 (02:04→18:12)
[2022-01-15 05:00] VITALS: BP 126/66
[2022-01-15] MEDS: ACETAMINOPHEN 325 MG TAB PO PRN (05:04)
[2022-01-15] MEDS: Ensure HIGH Protein Vanilla 8oz Bottle PO SCH ×3 (08:07→18:12)
[2022-01-15] MEDS: ENOXAPARIN SOD 40 MG/0.4 ML SYRINGE SC SCH (10:00)
[2022-01-15] MEDS: NICOTINE 7MG/24HR TOPICAL PATCH TD SCH (10:05)
[2022-01-15 10:20] VITALS: BP 114/71
[2022-01-15 11:54] LABS: Basophils # (auto) 0 10 ^3/uL (0-0.2); Basophils % (auto) 0.3 % (0.0-2.0); Eosinophils # (auto) 0.1 10 ^3/uL (0-0.8); Eosinophils % (auto) 1.2 % (0.0-7.0); Hematocrit 35.1 % (41.0-53.0); Hemoglobin 11.7 g/dL (13.5-17.5); Lymphocytes # (auto) 1.2 10 ^3/uL (0.4-5.4); Lymphocytes % (auto) 18.1 % (10.0-50.0); Mean Corpuscular Hemoglobin 27.3 pg (28.0-32.0); Mean Corpuscular Hgb Conc. 33.2 g/dL (32.0-36.0); Mean Corpuscular Volume 82.3 fL (80.0-100.0); Monocytes # (auto) 1.1 10 ^3/uL (0-1.3); Monocytes % (auto) 15.9 % (0.0-12.0); Neutrophils # (auto) 4.4 10 ^3/uL (1.6-8.6); Neutrophils % (auto) 64.5 % (37.0-80.0); Red Blood Cells 4.27 10^6/uL (4.5-5.90); Red Cell Distribution Width 13.4 % (11.8-14.3); White Blood Cell 6.8 10^3/uL (4.4-10.8)
[2022-01-15 12:18] LABS: Calcium 8.8 mg/dL (8.5-10.1); Potassium 3.8 mmol/L (3.5-5.1)
[2022-01-15 12:37] LABS: Albumin 2.3 g/dL (3.4-5.0); BUN/Creatinine Ratio 26.9; Bilirubin, Total 0.6 mg/dL (0.2-1.0); CRP High Sensitivity 9.57 mg/dL (< 0.3); Total Protein 7.8 g/dL (6.4-8.2)
[2022-01-15 13:44] VITALS: BP 106/61
[2022-01-15 16:34] LABS: Urine Amorphous Crystal FEW /hpf (None Seen); Urine Bacteria MOD /hpf (None Seen); Urine Blood Negative /uL (Negative); Urine Mucus FEW (None Seen); Urine Specific Gravity 1.024 (1.001-1.035); Urine Sperm PRESENT /hpf (None Seen); Urine WBC 3 /hpf (0 - 3)
[2022-01-15 16:56] VITALS: BP 107/51
[2022-01-15 22:00] VITALS: BP 115/68
[2022-01-16] MEDS: VANCOMYCIN 1GM/250ML 250 ML IV SCH ×4 (00:24→18:23)
[2022-01-16] MEDS: CEFEPIME 1GM/ 50ML 50 ML IV SCH ×3 (02:09→18:00)
[2022-01-16 05:00] VITALS: BP_SYST 106; BP_SYST 128; BP_DIAS 53; BP_DIAS 81
[2022-01-16] MEDS: ACETAMINOPHEN 325 MG TAB PO PRN (05:24)
[2022-01-16 06:44] LABS: Basophils # (auto) 0 10 ^3/uL (0-0.2); Basophils % (auto) 0.3 % (0.0-2.0); Eosinophils # (auto) 0.1 10 ^3/uL (0-0.8); Eosinophils % (auto) 1.1 % (0.0-7.0); Hematocrit 32.1 % (41.0-53.0); Hemoglobin 10.6 g/dL (13.5-17.5); Lymphocytes # (auto) 1.2 10 ^3/uL (0.4-5.4); Lymphocytes % (auto) 19.4 % (10.0-50.0); Mean Corpuscular Hemoglobin 27.3 pg (28.0-32.0); Mean Corpuscular Volume 82.7 fL (80.0-100.0); Monocytes # (auto) 0.8 10 ^3/uL (0-1.3); Monocytes % (auto) 12.9 % (0.0-12.0); Neutrophils # (auto) 3.9 10 ^3/uL (1.6-8.6); Neutrophils % (auto) 66.3 % (37.0-80.0); Red Blood Cells 3.88 10^6/uL (4.5-5.90); Red Cell Distribution Width 13.3 % (11.8-14.3); White Blood Cell 5.9 10^3/uL (4.4-10.8)
[2022-01-16 07:02] LABS: Albumin 2.2 g/dL (3.4-5.0); Calcium 8.3 mg/dL (8.5-10.1); Potassium 3.5 mmol/L (3.5-5.1)
[2022-01-16 07:05] LABS: BUN/Creatinine Ratio 16.7; Bilirubin, Total 0.5 mg/dL (0.2-1.0); Total Protein 7.5 g/dL (6.4-8.2)
[2022-01-16] MEDS: Ensure HIGH Protein Vanilla 8oz Bottle PO SCH ×3 (08:28→18:01)
[2022-01-16 09:00] VITALS: BP 103/63
[2022-01-16] MEDS: ENOXAPARIN SOD 40 MG/0.4 ML SYRINGE SC SCH (09:57)
[2022-01-16] MEDS: NICOTINE 7MG/24HR TOPICAL PATCH TD SCH (09:58)
[2022-01-16 12:47] VITALS: BP_SYST 105; BP_SYST 150; BP_DIAS 60; BP_DIAS 72
[2022-01-16 17:00] VITALS: BP 109/62
[2022-01-16 22:00] VITALS: BP 109/63
[2022-01-17] MEDS: VANCOMYCIN 1GM/250ML 250 ML IV SCH ×4 (00:18→19:18)
[2022-01-17] MEDS: CEFEPIME 1GM/ 50ML 50 ML IV SCH ×3 (02:12→17:35)
[2022-01-17 09:15] VITALS: BP 106/65
[2022-01-17] MEDS: ENOXAPARIN SOD 40 MG/0.4 ML SYRINGE SC SCH (10:19)
[2022-01-17] MEDS: NICOTINE 7MG/24HR TOPICAL PATCH TD SCH (10:21)
[2022-01-17] MEDS: Ensure HIGH Protein Vanilla 8oz Bottle PO SCH ×3 (10:22→17:24)
[2022-01-17 13:00] VITALS: BP 103/66
[2022-01-17 16:48] VITALS: BP 107/71
[2022-01-17 22:39] VITALS: BP 116/69
[2022-01-18] MEDS: VANCOMYCIN 1GM/250ML 250 ML IV SCH ×3 (00:25→12:05)
[2022-01-18] MEDS: CEFEPIME 1GM/ 50ML 50 ML IV SCH ×2 (02:00→10:32)
[2022-01-18 05:08] VITALS: BP 110/69
[2022-01-18 09:00] VITALS: BP 107/51
[2022-01-18] MEDS: Ensure HIGH Protein Vanilla 8oz Bottle PO SCH ×3 (09:48→18:11)
[2022-01-18] MEDS: NICOTINE 7MG/24HR TOPICAL PATCH TD SCH (10:27)
[2022-01-18] MEDS: ENOXAPARIN SOD 40 MG/0.4 ML SYRINGE SC SCH (10:33)
[2022-01-18 13:00] VITALS: BP_SYST 107; BP_SYST 108; BP_DIAS 51; BP_DIAS 68
[2022-01-18 16:32] VITALS: BP 109/65
[2022-01-18 21:57] VITALS: BP 117/72
[2022-01-19 05:19] VITALS: BP 101/65
[2022-01-19] MEDS: Ensure HIGH Protein Vanilla 8oz Bottle PO SCH ×3 (08:00→17:14)
[2022-01-19 09:11] VITALS: BP 107/63
[2022-01-19] MEDS: NICOTINE 7MG/24HR TOPICAL PATCH TD SCH (09:53)
[2022-01-19] MEDS: ENOXAPARIN SOD 40 MG/0.4 ML SYRINGE SC SCH (09:54)
[2022-01-19] MEDS ORDERED: LACTULOSE 20Gm/30ML SOLN PO ONE (11:00)
[2022-01-19] MEDS: VANCOMYCIN 1GM/250ML 250 ML IV SCH ×2 (12:14→20:46)
[2022-01-19 13:00] VITALS: BP 103/62
[2022-01-19 17:00] VITALS: BP 106/63
[2022-01-19] MEDS: DOCUSATE SOD 100 MG CAP PO SCH (21:38)
[2022-01-19] MEDS: LACTULOSE 20Gm/30ML SOLN PO SCH (21:38)
[2022-01-19 22:00] VITALS: BP 115/71
[2022-01-20 05:00] VITALS: BP 112/63
[2022-01-20] MEDS: VANCOMYCIN 1GM/250ML 250 ML IV SCH ×2 (06:23→18:01)
[2022-01-20 09:00] VITALS: BP 99/62
[2022-01-20] MEDS: DOCUSATE SOD 100 MG CAP PO SCH ×2 (10:56→21:30)
[2022-01-20] MEDS: LACTULOSE 20Gm/30ML SOLN PO SCH ×2 (10:56→21:29)
[2022-01-20] MEDS: ENOXAPARIN SOD 40 MG/0.4 ML SYRINGE SC SCH (10:56)
[2022-01-20] MEDS: NICOTINE 7MG/24HR TOPICAL PATCH TD SCH (10:58)
[2022-01-20] MEDS: Ensure HIGH Protein Vanilla 8oz Bottle PO SCH ×3 (10:59→18:02)
[2022-01-20 12:30] LABS: Basophils # (auto) 0 10 ^3/uL (0-0.2); Eosinophils # (auto) 0.2 10 ^3/uL (0-0.8); Hemoglobin 10.9 g/dL (13.5-17.5); Monocytes # (auto) 0.6 10 ^3/uL (0-1.3)
[2022-01-20 12:31] LABS: Basophils % (auto) 0.6 % (0.0-2.0); Eosinophils % (auto) 2.7 % (0.0-7.0); Hematocrit 32.4 % (41.0-53.0); Lymphocytes # (auto) 1.2 10 ^3/uL (0.4-5.4); Lymphocytes % (auto) 20.2 % (10.0-50.0); Mean Corpuscular Hemoglobin 27.1 pg (28.0-32.0); Mean Corpuscular Hgb Conc. 33.6 g/dL (32.0-36.0); Mean Corpuscular Volume 80.6 fL (80.0-100.0); Monocytes % (auto) 9.4 % (0.0-12.0); Neutrophils # (auto) 4.1 10 ^3/uL (1.6-8.6); Neutrophils % (auto) 67.1 % (37.0-80.0); Red Blood Cells 4.02 10^6/uL (4.5-5.90); Red Cell Distribution Width 13.3 % (11.8-14.3); White Blood Cell 6.1 10^3/uL (4.4-10.8)
[2022-01-20 12:45] LABS: Albumin 2.3 g/dL (3.4-5.0); Calcium 8.8 mg/dL (8.5-10.1); Potassium 3.8 mmol/L (3.5-5.1)
[2022-01-20 12:48] LABS: BUN/Creatinine Ratio 24.4; Bilirubin, Total 0.3 mg/dL (0.2-1.0); Total Protein 7.5 g/dL (6.4-8.2)
[2022-01-20 13:00] VITALS: BP 107/63
[2022-01-20 17:11] VITALS: BP 105/64
[2022-01-20 20:00] VITALS: BP 111/63
[2022-01-20] MEDS: ACETAMINOPHEN 325 MG TAB PO PRN (21:30)
[2022-01-20 22:00] VITALS: BP 111/63
[2022-01-21] MEDS: VANCOMYCIN 1GM/250ML 250 ML IV SCH ×3 (02:13→19:33)
[2022-01-21 05:00] VITALS: BP 110/67
[2022-01-21 09:00] VITALS: BP 104/60
[2022-01-21] MEDS: LACTULOSE 20Gm/30ML SOLN PO SCH ×2 (09:57→21:32)
[2022-01-21] MEDS: Ensure HIGH Protein Vanilla 8oz Bottle PO SCH ×3 (09:57→18:37)
[2022-01-21] MEDS: ENOXAPARIN SOD 40 MG/0.4 ML SYRINGE SC SCH (09:58)
[2022-01-21] MEDS: NICOTINE 7MG/24HR TOPICAL PATCH TD SCH (09:58)
[2022-01-21] MEDS: DOCUSATE SOD 100 MG CAP PO SCH ×2 (09:58→21:32)
[2022-01-21 13:00] VITALS: BP 104/61
[2022-01-21 17:00] VITALS: BP 107/59
[2022-01-21 20:00] VITALS: BP 105/62
[2022-01-21 22:00] VITALS: BP 105/62
[2022-01-22] MEDS: VANCOMYCIN 1GM/250ML 250 ML IV SCH ×4 (01:28→23:16)
[2022-01-22 05:00] VITALS: BP 99/59
[2022-01-22 06:52] LABS: Basophils # (auto) 0 10 ^3/uL (0-0.2); Basophils % (auto) 0.6 % (0.0-2.0); Eosinophils # (auto) 0.2 10 ^3/uL (0-0.8); Eosinophils % (auto) 5.3 % (0.0-7.0); Hematocrit 32.8 % (41.0-53.0); Hemoglobin 10.8 g/dL (13.5-17.5); Lymphocytes # (auto) 1.3 10 ^3/uL (0.4-5.4); Lymphocytes % (auto) 29.1 % (10.0-50.0); Mean Corpuscular Hemoglobin 26.6 pg (28.0-32.0); Mean Corpuscular Hgb Conc. 33.1 g/dL (32.0-36.0); Mean Corpuscular Volume 80.5 fL (80.0-100.0); Monocytes # (auto) 0.4 10 ^3/uL (0-1.3); Monocytes % (auto) 9.7 % (0.0-12.0); Neutrophils # (auto) 2.6 10 ^3/uL (1.6-8.6); Neutrophils % (auto) 55.3 % (37.0-80.0); Nucleated Red Blood Cells % 0.2 %; Red Blood Cells 4.07 10^6/uL (4.5-5.90); Red Cell Distribution Width 13.4 % (11.8-14.3); White Blood Cell 4.6 10^3/uL (4.4-10.8)
[2022-01-22 07:01] LABS: Potassium 4.2 mmol/L (3.5-5.1)
[2022-01-22 07:08] LABS: Albumin 2.3 g/dL (3.4-5.0); BUN/Creatinine Ratio 18.5; Bilirubin, Total 0.2 mg/dL (0.2-1.0); Calcium 8.6 mg/dL (8.5-10.1); Phosphorus 4.5 mg/dL (2.5-4.90); Total Protein 7.2 g/dL (6.4-8.2)
[2022-01-22 09:03] VITALS: BP 98/55
[2022-01-22] MEDS: ENOXAPARIN SOD 40 MG/0.4 ML SYRINGE SC SCH (09:29)
[2022-01-22] MEDS: DOCUSATE SOD 100 MG CAP PO SCH ×2 (09:29→21:52)
[2022-01-22] MEDS: LACTULOSE 20Gm/30ML SOLN PO SCH ×2 (09:29→21:52)
[2022-01-22] MEDS: NICOTINE 7MG/24HR TOPICAL PATCH TD SCH (09:30)
[2022-01-22] MEDS: Ensure HIGH Protein Vanilla 8oz Bottle PO SCH ×3 (09:36→17:47)
[2022-01-22 13:00] VITALS: BP 100/57
[2022-01-22 17:00] VITALS: BP 111/59
[2022-01-22] MEDS ORDERED: VANCOMYCIN 1GM/250ML 250 ML IV SCH (17:00)
[2022-01-22 20:00] VITALS: BP 107/57
[2022-01-22 22:00] VITALS: BP 107/57
[2022-01-23] MEDS: VANCOMYCIN 1GM/250ML 250 ML IV SCH ×2 (04:28→21:00)
[2022-01-23 06:34] LABS: Calcium 8.9 mg/dL (8.5-10.1); Potassium 4.4 mmol/L (3.5-5.1)
[2022-01-23 09:00] VITALS: BP 100/51
[2022-01-23] MEDS: ENOXAPARIN SOD 40 MG/0.4 ML SYRINGE SC SCH (09:13)
[2022-01-23] MEDS: Ensure HIGH Protein Vanilla 8oz Bottle PO SCH ×3 (09:13→19:02)
[2022-01-23] MEDS: LACTULOSE 20Gm/30ML SOLN PO SCH ×2 (09:13→21:50)
[2022-01-23] MEDS: DOCUSATE SOD 100 MG CAP PO SCH ×2 (09:13→21:50)
[2022-01-23] MEDS: NICOTINE 7MG/24HR TOPICAL PATCH TD SCH (09:14)
[2022-01-23] MEDS ORDERED: VANCOMYCIN 1GM/250ML 250 ML IV SCH (11:30)
[2022-01-23 13:00] VITALS: BP 111/62
[2022-01-23 14:07] LABS: INR 1.11 (0.9-1.15); Partial Thromboplastin Time 27.9 sec (24.6-33.4)
[2022-01-23 17:00] VITALS: BP 103/64
[2022-01-23 22:00] VITALS: BP 111/63
[2022-01-24] MEDS: VANCOMYCIN 1GM/250ML 250 ML IV SCH ×4 (03:27→22:58)
[2022-01-24 05:00] VITALS: BP 106/59
[2022-01-24 05:42] LABS: Albumin 2.4 g/dL (3.4-5.0); BUN/Creatinine Ratio 29.3; Calcium 8.4 mg/dL (8.5-10.1); Phosphorus 4.4 mg/dL (2.5-4.90); Potassium 3.8 mmol/L (3.5-5.1)
[2022-01-24 09:00] VITALS: BP 99/58
[2022-01-24] MEDS: LACTULOSE 20Gm/30ML SOLN PO SCH (09:01)
[2022-01-24] MEDS: ENOXAPARIN SOD 40 MG/0.4 ML SYRINGE SC SCH (09:01)
[2022-01-24] MEDS: DOCUSATE SOD 100 MG CAP PO SCH ×2 (09:01→22:37)
[2022-01-24] MEDS: Ensure HIGH Protein Vanilla 8oz Bottle PO SCH ×3 (09:01→18:42)
[2022-01-24] MEDS: NICOTINE 7MG/24HR TOPICAL PATCH TD SCH (09:02)
[2022-01-24 13:00] VITALS: BP 115/89
[2022-01-24 17:00] VITALS: BP 106/61
[2022-01-24] MEDS: Juven Fruit Punch Powder PACKET 28.8gm PO SCH (18:42)
[2022-01-24] MEDS ORDERED: LIDOCAINE 1% (LOCAL ANESTH.) PF 5ml SDV ID ONE (18:45)
[2022-01-24 22:00] VITALS: BP 102/61
[2022-01-24] MEDS: SODIUM CHLOR 0.9% PF (SALINE LOCK) 10ML VIAL/SYR IV SCH (22:37)
[2022-01-25 05:03] VITALS: BP 102/60
[2022-01-25] MEDS: VANCOMYCIN 1GM/250ML 250 ML IV SCH ×4 (05:08→23:00)
[2022-01-25] MEDS: Juven Fruit Punch Powder PACKET 28.8gm PO SCH ×2 (08:00→18:00)
[2022-01-25] MEDS: Ensure HIGH Protein Vanilla 8oz Bottle PO SCH ×3 (08:00→18:00)
[2022-01-25 09:00] VITALS: BP 108/64
[2022-01-25] MEDS: DOCUSATE SOD 100 MG CAP PO SCH ×2 (09:46→22:00)
[2022-01-25] MEDS: ENOXAPARIN SOD 40 MG/0.4 ML SYRINGE SC SCH (09:46)
[2022-01-25] MEDS: SODIUM CHLOR 0.9% PF (SALINE LOCK) 10ML VIAL/SYR IV SCH ×2 (10:00→22:00)
[2022-01-25 13:00] VITALS: BP 101/63
[2022-01-25 17:00] VITALS: BP 99/53
[2022-01-25 22:00] VITALS: BP 109/61
[2022-01-26 05:00] VITALS: BP 103/61
[2022-01-26] MEDS: VANCOMYCIN 1GM/250ML 250 ML IV SCH ×4 (05:00→22:51)
[2022-01-26 05:55] LABS: % Iron Saturation 7.6 % (20-55)
[2022-01-26] MEDS ORDERED: LEVOTHYROXINE SODIUM 25 MCG TAB PO ONE (08:45)
[2022-01-26] MEDS: Ensure HIGH Protein Vanilla 8oz Bottle PO SCH ×3 (08:50→18:03)
[2022-01-26] MEDS: Juven Fruit Punch Powder PACKET 28.8gm PO SCH ×2 (08:50→18:03)
[2022-01-26 09:00] VITALS: BP 105/60
[2022-01-26] MEDS: DOCUSATE SOD 100 MG CAP PO SCH ×2 (10:00→21:30)
[2022-01-26] MEDS: SODIUM CHLOR 0.9% PF (SALINE LOCK) 10ML VIAL/SYR IV SCH ×2 (10:25→21:30)
[2022-01-26] MEDS: ENOXAPARIN SOD 40 MG/0.4 ML SYRINGE SC SCH (10:26)
[2022-01-26 13:00] VITALS: BP 97/64
[2022-01-26] MEDS: SODIUM FERR GLUC 62.5MG/5ML 125 MG in SODIUM CHL 0.9% 100 ML IV SCH (15:57)
[2022-01-26 16:49] VITALS: BP 108/61
[2022-01-26 22:13] VITALS: BP 102/59
[2022-01-27] MEDS: VANCOMYCIN 1GM/250ML 250 ML IV SCH ×4 (04:36→22:44)
[2022-01-27 05:43] VITALS: BP 103/60
[2022-01-27] MEDS: LEVOTHYROXINE SODIUM 25 MCG TAB PO SCH (07:29)
[2022-01-27] MEDS: Ensure HIGH Protein Vanilla 8oz Bottle PO SCH ×3 (08:00→18:00)
[2022-01-27] MEDS: Juven Fruit Punch Powder PACKET 28.8gm PO SCH ×2 (08:00→18:00)
[2022-01-27 09:03] VITALS: BP 100/60
[2022-01-27] MEDS: SODIUM CHLOR 0.9% PF (SALINE LOCK) 10ML VIAL/SYR IV SCH ×2 (09:42→22:00)
[2022-01-27] MEDS: ENOXAPARIN SOD 40 MG/0.4 ML SYRINGE SC SCH (09:43)
[2022-01-27] MEDS: DOCUSATE SOD 100 MG CAP PO SCH ×2 (09:43→22:47)
[2022-01-27 12:27] VITALS: BP 105/62
[2022-01-27] MEDS: SODIUM FERR GLUC 62.5MG/5ML 125 MG in SODIUM CHL 0.9% 100 ML IV SCH (12:32)
[2022-01-27 16:31] VITALS: BP 101/57
[2022-01-27 21:57] VITALS: BP 110/65
[2022-01-28] MEDS: VANCOMYCIN 1GM/250ML 250 ML IV SCH ×4 (04:59→22:48)
[2022-01-28 05:00] VITALS: BP 105/62
[2022-01-28] MEDS: LEVOTHYROXINE SODIUM 25 MCG TAB PO SCH (06:05)
[2022-01-28] MEDS: Ensure HIGH Protein Vanilla 8oz Bottle PO SCH ×3 (08:00→18:00)
[2022-01-28] MEDS: Juven Fruit Punch Powder PACKET 28.8gm PO SCH ×2 (08:00→18:00)
[2022-01-28 09:00] VITALS: BP 114/66
[2022-01-28] MEDS: ENOXAPARIN SOD 40 MG/0.4 ML SYRINGE SC SCH (09:45)
[2022-01-28] MEDS: DOCUSATE SOD 100 MG CAP PO SCH ×2 (09:45→21:29)
[2022-01-28] MEDS: SODIUM CHLOR 0.9% PF (SALINE LOCK) 10ML VIAL/SYR IV SCH ×2 (09:45→21:29)
[2022-01-28] MEDS: SODIUM FERR GLUC 62.5MG/5ML 125 MG in SODIUM CHL 0.9% 100 ML IV SCH (11:58)
[2022-01-28 13:00] VITALS: BP 108/61
[2022-01-28 16:36] VITALS: BP 117/75
[2022-01-28] MEDS: ACETAMINOPHEN 325 MG TAB PO PRN (16:43)
[2022-01-28] MEDS ORDERED: LACTULOSE 20Gm/30ML SOLN PO PRN (16:45)
[2022-01-28 22:00] VITALS: BP 108/60
[2022-01-29] MEDS: ACETAMINOPHEN 325 MG TAB PO PRN ×3 (00:50→22:09)
[2022-01-29 05:00] VITALS: BP 111/68
[2022-01-29] MEDS: VANCOMYCIN 1GM/250ML 250 ML IV SCH ×4 (05:19→21:03)
[2022-01-29] MEDS: LEVOTHYROXINE SODIUM 25 MCG TAB PO SCH (06:20)
[2022-01-29 07:55] LABS: Basophils # (auto) 0 10 ^3/uL (0-0.2); Eosinophils # (auto) 0.1 10 ^3/uL (0-0.8)
[2022-01-29 07:57] LABS: Basophils % (auto) 0.2 % (0.0-2.0); Eosinophils % (auto) 1.8 % (0.0-7.0); Hematocrit 34.4 % (41.0-53.0); Lymphocytes # (auto) 1.3 10 ^3/uL (0.4-5.4); Lymphocytes % (auto) 18.7 % (10.0-50.0); Mean Corpuscular Hemoglobin 26.4 pg (28.0-32.0); Mean Corpuscular Hgb Conc. 32.1 g/dL (32.0-36.0); Mean Corpuscular Volume 82.2 fL (80.0-100.0); Monocytes % (auto) 14.3 % (0.0-12.0); Neutrophils # (auto) 4.6 10 ^3/uL (1.6-8.6); Red Blood Cells 4.18 10^6/uL (4.5-5.90); Red Cell Distribution Width 14.2 % (11.8-14.3); White Blood Cell 7.1 10^3/uL (4.4-10.8)
[2022-01-29 08:00] VITALS: BP 93/46
[2022-01-29] MEDS: Juven Fruit Punch Powder PACKET 28.8gm PO SCH ×2 (08:04→18:12)
[2022-01-29] MEDS: Ensure HIGH Protein Vanilla 8oz Bottle PO SCH ×3 (08:04→18:12)
[2022-01-29 08:12] LABS: Albumin 2.1 g/dL (3.4-5.0); BUN/Creatinine Ratio 29.4; Calcium 8.2 mg/dL (8.5-10.1); Phosphorus 4.6 mg/dL (2.5-4.90); Potassium 4.1 mmol/L (3.5-5.1)
[2022-01-29 08:30] VITALS: BP 93/46
[2022-01-29] MEDS: SODIUM CHLOR 0.9% PF (SALINE LOCK) 10ML VIAL/SYR IV SCH ×2 (10:40→22:08)
[2022-01-29] MEDS: DOCUSATE SOD 100 MG CAP PO SCH ×2 (10:40→22:09)
[2022-01-29] MEDS: ENOXAPARIN SOD 40 MG/0.4 ML SYRINGE SC SCH (10:40)
[2022-01-29 12:30] VITALS: BP 103/54
[2022-01-29] MEDS: SODIUM FERR GLUC 62.5MG/5ML 125 MG in SODIUM CHL 0.9% 100 ML IV SCH (12:40)
[2022-01-29 16:30] VITALS: BP 102/61
[2022-01-29 22:00] VITALS: BP 127/78
[2022-01-30] MEDS: VANCOMYCIN 1GM/250ML 250 ML IV SCH ×4 (03:02→21:07)
[2022-01-30 05:00] VITALS: BP 112/68
[2022-01-30] MEDS: LEVOTHYROXINE SODIUM 25 MCG TAB PO SCH (06:36)
[2022-01-30 06:54] LABS: BUN/Creatinine Ratio 20.9; Calcium 8.1 mg/dL (8.5-10.1); Potassium 4.5 mmol/L (3.5-5.1)
[2022-01-30] MEDS: Juven Fruit Punch Powder PACKET 28.8gm PO SCH ×2 (08:03→17:33)
[2022-01-30] MEDS: Ensure HIGH Protein Vanilla 8oz Bottle PO SCH ×3 (08:03→17:33)
[2022-01-30 08:28] LABS: Eosinophils # (auto) 0.2 10 ^3/uL (0-0.8); Hemoglobin 10.3 g/dL (13.5-17.5); Mean Corpuscular Hemoglobin 26.5 pg (28.0-32.0); Mean Corpuscular Hgb Conc. 33.3 g/dL (32.0-36.0)
[2022-01-30 08:30] LABS: Basophils # (auto) 0 10 ^3/uL (0-0.2); Basophils % (auto) 0.5 % (0.0-2.0); Eosinophils % (auto) 2.8 % (0.0-7.0); Hematocrit 30.9 % (41.0-53.0); Lymphocytes # (auto) 1.3 10 ^3/uL (0.4-5.4); Lymphocytes % (auto) 18.9 % (10.0-50.0); Mean Corpuscular Volume 79.4 fL (80.0-100.0); Monocytes # (auto) 0.7 10 ^3/uL (0-1.3); Neutrophils # (auto) 4.4 10 ^3/uL (1.6-8.6); Neutrophils % (auto) 66.8 % (37.0-80.0); Red Blood Cells 3.89 10^6/uL (4.5-5.90); Red Cell Distribution Width 14.4 % (11.8-14.3); White Blood Cell 6.7 10^3/uL (4.4-10.8)
[2022-01-30 09:00] VITALS: BP 101/57
[2022-01-30] MEDS: DOCUSATE SOD 100 MG CAP PO SCH ×2 (10:01→21:22)
[2022-01-30] MEDS: SODIUM CHLOR 0.9% PF (SALINE LOCK) 10ML VIAL/SYR IV SCH ×2 (10:01→21:22)
[2022-01-30] MEDS: ENOXAPARIN SOD 40 MG/0.4 ML SYRINGE SC SCH (10:02)
[2022-01-30] MEDS: SODIUM FERR GLUC 62.5MG/5ML 125 MG in SODIUM CHL 0.9% 100 ML IV SCH (12:04)
[2022-01-30 13:00] VITALS: BP 103/57
[2022-01-30 17:15] VITALS: BP 102/58
[2022-01-30] MEDS: ACETAMINOPHEN 325 MG TAB PO PRN (21:22)
[2022-01-30 22:00] VITALS: BP 105/58
[2022-01-31] MEDS: VANCOMYCIN 1GM/250ML 250 ML IV SCH ×4 (03:13→21:18)
[2022-01-31 04:52] LABS: Basophils # (auto) 0 10 ^3/uL (0-0.2); Basophils % (auto) 0.4 % (0.0-2.0); Eosinophils # (auto) 0.2 10 ^3/uL (0-0.8); Eosinophils % (auto) 3.4 % (0.0-7.0); Hematocrit 32.4 % (41.0-53.0); Hemoglobin 10.5 g/dL (13.5-17.5); Lymphocytes # (auto) 1.4 10 ^3/uL (0.4-5.4); Lymphocytes % (auto) 23.8 % (10.0-50.0); Mean Corpuscular Hemoglobin 26.4 pg (28.0-32.0); Mean Corpuscular Hgb Conc. 32.6 g/dL (32.0-36.0); Monocytes # (auto) 0.6 10 ^3/uL (0-1.3); Monocytes % (auto) 9.8 % (0.0-12.0); Neutrophils # (auto) 3.7 10 ^3/uL (1.6-8.6); Neutrophils % (auto) 62.6 % (37.0-80.0); Red Blood Cells 3.99 10^6/uL (4.5-5.90); Red Cell Distribution Width 14.3 % (11.8-14.3); White Blood Cell 5.9 10^3/uL (4.4-10.8)
[2022-01-31 05:00] VITALS: BP 102/57
[2022-01-31 05:04] LABS: BUN/Creatinine Ratio 20.9; Calcium 8.7 mg/dL (8.5-10.1); Potassium 3.7 mmol/L (3.5-5.1)
[2022-01-31] MEDS: LEVOTHYROXINE SODIUM 25 MCG TAB PO SCH (06:18)
[2022-01-31 09:00] VITALS: BP 103/59
[2022-01-31] MEDS: DOCUSATE SOD 100 MG CAP PO SCH ×2 (10:40→22:43)
[2022-01-31] MEDS: SODIUM CHLOR 0.9% PF (SALINE LOCK) 10ML VIAL/SYR IV SCH ×2 (10:40→22:43)
[2022-01-31] MEDS: ENOXAPARIN SOD 40 MG/0.4 ML SYRINGE SC SCH (10:40)
[2022-01-31] MEDS: Ensure HIGH Protein Vanilla 8oz Bottle PO SCH ×3 (10:41→18:35)
[2022-01-31] MEDS: Juven Fruit Punch Powder PACKET 28.8gm PO SCH ×2 (10:41→18:35)
[2022-01-31] MEDS: SODIUM FERR GLUC 62.5MG/5ML 125 MG in SODIUM CHL 0.9% 100 ML IV SCH (12:30)
[2022-01-31 13:00] VITALS: BP 102/59
[2022-01-31 16:45] VITALS: BP 104/63
[2022-01-31] MEDS: Pro-Stat SF 30ml Vanilla PO SCH (18:35)
[2022-01-31] MEDS: SODIUM CHLORIDE 0.9% 1,000 ML IV SCH (21:17)
[2022-01-31 22:00] VITALS: BP 109/64
[2022-02-01] MEDS: VANCOMYCIN 1GM/250ML 250 ML IV SCH ×3 (03:08→16:38)
[2022-02-01 05:00] VITALS: BP 101/61
[2022-02-01] MEDS: SODIUM CHLORIDE 0.9% 1,000 ML IV SCH ×2 (05:15→15:15)
[2022-02-01] MEDS: LEVOTHYROXINE SODIUM 25 MCG TAB PO SCH (06:19)
[2022-02-01] MEDS: Pro-Stat SF 30ml Vanilla PO SCH ×2 (08:19→18:35)
[2022-02-01] MEDS: Ensure HIGH Protein Vanilla 8oz Bottle PO SCH ×3 (08:19→18:36)
[2022-02-01] MEDS: Juven Fruit Punch Powder PACKET 28.8gm PO SCH ×2 (08:19→18:35)
[2022-02-01 08:53] VITALS: BP 101/57
[2022-02-01 10:22] LABS: INR 1.16 (0.9-1.15); Partial Thromboplastin Time 30.6 sec (24.6-33.4)
[2022-02-01] MEDS: DOCUSATE SOD 100 MG CAP PO SCH (10:23)
[2022-02-01] MEDS: ENOXAPARIN SOD 40 MG/0.4 ML SYRINGE SC SCH (10:23)
[2022-02-01] MEDS: SODIUM CHLOR 0.9% PF (SALINE LOCK) 10ML VIAL/SYR IV SCH (10:23)
[2022-02-01 12:37] VITALS: BP 97/55
[2022-02-01] MEDS: SODIUM FERR GLUC 62.5MG/5ML 125 MG in SODIUM CHL 0.9% 100 ML IV SCH (13:23)
[2022-02-01 16:41] VITALS: BP 102/61
== END 2022-02-01 19:10 | DRG 720 ==
LOC: UNDOADMIN 18:41 → OVERFLOW 18:41 → UNDOADMIN 19:30 → CENTRAL 19:30 → OVERFLOW 19:30
PROVIDERS: ADMIT Registered Nurse; ATTEND Internal Medicine Nephrology
PROC: 02HV33Z Insertion of Infusion Device into Superior Vena Cava, Percutaneous Approach (ICD-10-PCS; principal; 2022-01-24)
PROC: B548ZZA Ultrasonography of Superior Vena Cava, Guidance (ICD-10-PCS; 2022-01-24)
DX: A41.02 Sepsis due to Methicillin resistant Staphylococcus aureus (principal); G61.0 Guillain-Barre syndrome; J15.6 Pneumonia due to other Gram-negative bacteria; L89.153 Pressure ulcer of sacral region, stage 3; E44.1 Mild protein-calorie malnutrition; L89.313 Pressure ulcer of right buttock, stage 3; G82.20 Paraplegia, unspecified; Z20.822 Contact with and (suspected) exposure to COVID-19; N39.0 Urinary tract infection, site not specified; L97.529 Non-pressure chronic ulcer of other part of left foot with unspecified severity; F19.90 Other psychoactive substance use, unspecified, uncomplicated; F12.90 Cannabis use, unspecified, uncomplicated; N31.9 Neuromuscular dysfunction of bladder, unspecified; L89.519 Pressure ulcer of right ankle, unspecified stage; D64.9 Anemia, unspecified; F15.10 Other stimulant abuse, uncomplicated; M48.56XA Collapsed vertebra, not elsewhere classified, lumbar region, initial encounter for fracture; Z88.0 Allergy status to penicillin; Z74.01 Bed confinement status; Z68.25 Body mass index [BMI] 25.0-25.9, adult
CPT/HCPCS: 36415; 36569; 71045; 80048; 80053; 80069; 80202; 81001; 82550; 82565; 82728; 83540; 83550; 83735; 84439; 84443; 85025; 85610; 85652; 85730; 86038; 86141; 87040; 87077; 87081; 87086; 87186; 87804; 97110; 97116; 97163; 97530; G0378; J1561